=== PATIENT | male | born 1995 | race Caucasian/White ===

== ENCOUNTER 2017-01-06 15:46 | Outpatient (CLI) | payer OTHER ==
[~2017-01-06] VITALS: Ht 165.1 cm; Wt 124.5 kg
[2017-01-06 15:45] VITALS: BP 155/79; PULSE 114; RESP 18; Ht 165.1 cm; Wt 124.5 kg
--- NOTE | 2017-01-06 17:10 | PN ---
Date/Time of Note Date/Time of Note DATE: 01/06/17 TIME: 16:58 Assessment/Plan Assessment/Plan Assessment/Plan [facility] Progress Note Date of Service: 01/06/2017 Today's Impression & Plan: Overall stable and doing well. No evidence of major postoperative complications. Please note I spent approximately 15 extra minutes counselling regarding how to achieve a BMI between 18-24 and answered numerous questions from the patient. He can certainly benefit from a very dedicated PCP to help him in his journey to a healthier lifestyle. With above assessment I recommended the followin. F/u with PCP 2. F/u with us prn 3. Implement appropriate changes in lifestyle to achieve a BMI between 18-24 Thank you very much for allowing us to participate in the care of this very nice patient and wonderful family. If there are any questions, please feel free to contact me at . Total visit time: 20 minutes, of which more than half was spent in [id number] discussion with the patient, possibly including time to discuss issues with family, as well as coordination of care with multiple other physicians and providers. Please note: Spelling or grammatical errors in this note are likely due to EHR/ dictation systems and are not reflective of patient care quality. Also please note that the dictation timestamp of this note does not necessarily reflected time of the visit for this service. Updated Clinical Summary: A very pleasant 21-year-old young gentleman with comorbidity of BMI 43.7 and chronic back pain admitted through the emergency department to [facility] on 12/29/2016 with acute appendicitis as evidenced by his hip history and physical, elevated white blood cell count and CT findings. S/p laparoscopic appendectomy 12/29/2016. Final path showed no malignancy and showed perforated acute appendicitis. Comorbidities: 1. BMI 43.7 2. Chronic back pain for last 10 months, on pain medications at home 3. S/p laparoscopic appendectomy 12/29/2016. Final path showed no malignancy and showed perforated acute appendicitis. Subjective: No major events or complaints overnight. No major pain complaints and reportedly under control with medications. No N/V, SOB or CP. + bowel activity Objective: Vitals: reviewed; please also see EHR Physical Exam: Lungs: breathing comfortably without tachypnea; no audible wheezes, rales or rhonchi on gross exam Abd: Soft, non-tender, and non-distended; no peritoneal signs or guarding; incisions c/d/i w/o obvious e/e/d/h Skin: Appears pink and feels warm to touch. Neuro: Awake, alert and follows commands appropriately Exam/Review of Systems Vital Signs Vitals Vital Signs Date Time Temp Pulse Resp B/P Pulse Ox O2 Delivery O2 Flow Rate FiO2 01/06/17 15:45 98.5 114 18 155/79 95 Room Air CAROLINA MAZA M.D. Jan 06, 2017 17:09
== END 2017-01-06 16:57 | disposition home or self-care (01) ==
LOC: HPC 15:46
PROVIDERS: ATTEND Transplant Surgery
DX: Z09 Encounter for follow-up examination after completed treatment for conditions other than malignant neoplasm (principal); G89.29 Other chronic pain; M54.9 Dorsalgia, unspecified
CPT/HCPCS: G0463